=== PATIENT | female | born 1975 | race Caucasian/White ===

== ENCOUNTER → 2025-02-16 13:08 | Outpatient (REF) | payer OTHER, SELFPAY | LOC: HWRAD 13:08 | PROVIDERS: ATTENDING PHYSICIAN Obstetrics & Gynecology Gynecology | DX: N95.0 Postmenopausal bleeding (principal) | CPT/HCPCS: 76830; 76856 ==

== ENCOUNTER → 2025-04-03 13:22 | Outpatient (REF) | payer OTHER, SELFPAY | LOC: WDC 13:22 | PROVIDERS: ATTENDING PHYSICIAN Obstetrics & Gynecology Gynecology | DX: Z12.31 Encounter for screening mammogram for malignant neoplasm of breast (principal) | CPT/HCPCS: 77063; 77067 ==